=== PATIENT | female | born 1970 | race Two or more races ===

== ENCOUNTER 2022-07-05 17:43 | Emergency (ER) | payer OTHER ==
[~2022-07-05] VITALS: Ht 152.4 cm; Wt 63.5 kg
[2022-07-05 19:22] LABS: Eosinophils # (auto) 0.1 10 ^3/uL (0-0.8); Hemoglobin 11.7 g/dL (12.2-16.2); Lymphocytes # (auto) 1.4 10 ^3/uL (0.4-5.4); Monocytes # (auto) 0.3 10 ^3/uL (0-1.3); Neutrophils # (auto) 3.5 10 ^3/uL (1.6-8.6); Nucleated Red Blood Cells % 0.1 %; White Blood Cell 5.3 10^3/uL (4.4-10.8)
[2022-07-05 19:25] LABS: Basophils # (auto) 0 10 ^3/uL (0-0.2); Basophils % (auto) 0.8 % (0.0-2.0); Eosinophils % (auto) 1.2 % (0.0-7.0); Hematocrit 36.5 % (36.0-46.0); Lymphocytes % (auto) 26.8 % (10.0-50.0); Mean Corpuscular Hemoglobin 25.6 pg (28.0-32.0); Mean Corpuscular Hgb Conc. 32.2 g/dL (32.0-36.0); Mean Corpuscular Volume 79.8 fL (80.0-100.0); Monocytes % (auto) 5.4 % (0.0-12.0); Neutrophils % (auto) 65.8 % (37.0-80.0); Red Blood Cells 4.58 10^6/uL (4.0-5.20); Red Cell Distribution Width 17.2 % (11.8-14.3)
[2022-07-05 19:35] LABS: BUN/Creatinine Ratio 24.5; Calcium 8.8 mg/dL (8.5-10.1); Potassium 4.6 mmol/L (3.5-5.1)
[2022-07-05 19:38] LABS: Bilirubin, Total 0.3 mg/dL (0.2-1.0)
[2022-07-06 02:44] VITALS: BP 150/66
== END 2022-07-06 02:42 | disposition home or self-care (01) ==
LOC: ER 17:43
DX: R20.0 Anesthesia of skin (principal); E11.9 Type 2 diabetes mellitus without complications; E78.5 Hyperlipidemia, unspecified
CPT/HCPCS: 36415; 70450; 80053; 82962; 85025; 93005